=== PATIENT | male | born 1980 | race Caucasian/White ===

== ENCOUNTER 2025-06-17 13:32 | Outpatient (REF) | payer OTHER, SELFPAY ==
--- NOTE | ~2025-06-17 | FL_ITS ---
EXAMINATION: Modified BARIUM SWALLOW CLINICAL INFORMATION: Dysphagia COMPARISON: None available. TECHNIQUE: Routine modified barium swallow was performed under lateral fluoroscopy in presence of speech therapist following oral administration of various consistencies of food coated with barium. FINDINGS: Following oral administration of thick barium, barium with applesauce and cookie with barium paste there is normal oral mastication of solid food with propagation of solid and liquid bolus from the oral cavity through the pharynx into esophagus. No laryngeal penetration and aspiration seen. FLUOROSCOPY TIME: 57 seconds DOSE AREA PRODUCT: 924 uGy-m2 (microgray-meter squared) FL/FL Modified Barium Swallow IMPRESSION: Unremarkable barium swallow examination. Correlate with speech therapy report. Electronically signed by: Chao Brooks MD 06/18/2025 12:34 PM EDT
--- NOTE | 2025-06-17 15:33 | MHC.SL.IMP ---
Date of Plan of Treatment: 06/17/25 Onset of Symptoms/Illness: 06/17/24 Date Treatment Started: 06/17/25 Admitting Diagnosis: Dysphagia Primary Speech & Language Diagnosis: R13.13 Pharyngeal Phase Dysphagia Reason for Today's Visit: 92056 Modified Barium Swallow Study Pre-evaluation Dietary Consistencies: Regular Pre-evaluation Liquid Consistency: Thin Pre-evaluation Medication Administration: Whole with Liquid Medical History: Modified Barium Swallow Study Fluoroscopic Evaluation of Swallowing Function CPT Code 51019 Evaluation Year: 2024 Reason for Study: Patient reporting difficulty swallowing. Referring Physician: Fernando Frazier MD Evaluating Clinician: Marge Mccray MA, CCC-HOOK AND EYE ATTACHER Study Number: 1 Patient Name: Emile Fernandez Status: Outpatient Age: 45 Sex: Male Medical History Acne Allergic rhinitis Bilateral dry eyes Elevated liver function tests Excessive drinking alcohol Hypercholesterolemia Hyperlipidemia Hypertension Impaired fasting glucose Perennial allergic rhinitis Pes planus Current (pre-evaluation) Intake/Diet: Route: PO Diet Grade: Regular Liquid Consistencies: Thin Pre-Study Functional Oral Intake Scale (FOIS): 7- Total oral intake with no restrictions Pain: None reported at time of study SUBJECTIVE: Patient is a 45 year old male referred for a modified barium swallow study by his primary care provider. Patient reports onset of dysphagia approximately 1 year ago. He reports feeling food get stuck in his throat and needing to chew food more carefully for easier swallowing. He denies coughing, choking, odynophagia, heart burn, or having any trouble swallowing liquids. Food and Liquid Trials: Oral Impairment: Lip Closure: 1=Interlabial escape; no progression to anterior tip Oral Impairment: Tongue Control During Bolus Hold: 0=Cohesive bolus between tongue to palatal seal Oral Impairment: Bolus Preparation/Mastication: 0=Timely and efficient chewing and mashing Oral Impairment: Bolus Transport/Lingual Motion: 0=Brisk tongue motion Oral Impairment: Oral Residue: 1=Trace residue lining oral structures Oral Impairment:Initiation of Pharyngeal Swallow: 0=Bolus head at posterior angle of ramus (first hyoid excursion) Pharyngeal Impairment: Soft Palate Elevation: 0=No bolus between soft palate (SP)/pharyngeal wall (PW) Pharyngeal Impairment: Laryngeal Elevation: 0=Complete superior movement of thyroid cartilage (see description) Pharyngeal Impairment: Anterior Hyoid Excursion: 0=Complete anterior movement Pharyngeal Impairment: Epiglottic Movement: 0=Complete inversion Pharyngeal Impairment: Laryngeal Vestibular Closure:: 0=Complete: no air/contrast in laryngeal vestibule Pharyngeal Impairment: Pharyngeal Stripping Wave: 0=Present: complete Pharyngeal Impairment: Pharyngeal Contraction: Did not test Pharyngeal Impairment: Pharyngoesophageal Segment Openin=Complete distension and complete duration: no obstruction of flow Pharyngeal Impairment: Tongue Base (TB) Retraction: 0=No contrast between tongue base and posterior pharyngeal wall Pharyngeal Impairment: Pharyngeal Residue: 1=Trace residue within or on pharyngeal structures Pharyngeal Impairment: Esophageal Clearance Upright Position: 0=Complete clearance: esophageal coating Impressions and Recommendations OBJECTIVE: Time-out: performed at 14:30 Evaluation Start: 14:20; Stop: 14:30 Patient Positioning: Standing Viewing Planes: LAT & AP Contrast: MBSImP? Standardized Protocol using commercially prepared, standardized Barium viscosities, including: Varibar? THIN LIQUID (40% w/v, <15 cps) , Varibar? PUDDING (40% w/v, <3912-5141 cps) , 1/2 Shortbread Cookie (1 x1 x.25 ) [facility] [id number] [facility] Results: Lip closure for intraoral bolus containment resulted in interlabial escape, without progression to the anterior lip. Tongue control during bolus hold maintained a cohesive bolus held between tongue to palate seal. Bolus preparation and mastication resulted in timely and efficient chewing and mashing. Bolus transport/lingual motion was with brisk tongue motion. Oral residue was a trace, lining oral structures. Initiation of the pharyngeal swallow occurred as the bolus head reached the posterior angle of the mandibular ramus. Soft palate elevation resulted in no bolus between the soft palate and the pharyngeal wall. Laryngeal elevation demonstrated complete superior movement of the thyroid cartilage with complete approximation of the arytenoids to the epiglottic petiole. Anterior hyoid excursion demonstrated complete anterior movement. Epiglottic movement resulted in complete inversion. Laryngeal vestibular closure was complete, as indicated by no air or contrast within the laryngeal vestibule at the height of the swallow. Pharyngeal stripping wave was present and complete. Pharyngeal contraction could not be determined due to logistical reasons not related to physiologic impairment. Pharyngoesophageal segment opening was completely distended for complete duration with no obstruction of bolus flow. Tongue base retraction allowed no contrast between the retracted tongue base and the posterior pharyngeal wall. Pharyngeal residue was a trace within or on pharyngeal structures. Esophageal clearance in the upright position was complete, with only a coating of contrast, if any. Oral Impairment Score: 0 Pharyngeal Impairment Score: 0 (absence of score, component 13) Esophageal Impairment Score: 0 Laryngeal Penetration and Aspiration: Neither penetration nor aspiration was observed in today's study with Cookie, Pudding-thick, Thin. ASSESSMENT: This exam was performed by the radiologist and the speech pathologist. Patient was standing for lateral and AP views. He fed himself independently and trialed the following consistencies: thin liquids (rapid sequential cup sips), puree (mixture applesauce w/ barium pudding), and regular solid (shortbread cookie coated w/ barium pudding). Patient demonstrated good lingual control, maintaining bolus in the oral cavity with no premature posterior escape, and producing brisk lingual movement for timely bolus transit. Mastication was timely and efficient. Pharyngeal swallow trigger was timely. No evidence of nasopharyngeal reflux. Complete laryngeal elevation with good airway protection, complete epiglottic inversion and complete laryngeal vestibular closure. No evidence of aspiration or penetration. There was trace residue on the blade of tongue, in the valleculae and the pyriforms which subsequently cleared. Liquid Intake Recommendation: Thin Liquid Intake Strategies: Unrestricted Dietary Recommendations: Regular Medication Administration: Whole with Liquid Please contact the pharmacy regarding appropriate crushable or liquid drug formulations that are available whenever modified delivery is recommended. Compensatory Strategies Recommended: Sitting Upright (90 deg), Small Bites and Sips, Alternate Liquids/Solids, Rate of Ingestion Change Recommendation for Speech Therapy: NA:Typical Evaluation Text Comment: Intake Recommendations: Route: PO Diet Grade: Regular Liquid Consistencies: Thin Post-Study Functional Oral Intake Scale (FOIS): 7- Total oral intake with no restrictions Unremarkable MBSS. No evidence of aspiration. Good oral and pharyngeal clearance. Therapy Recommendations: Diet modification and speech intervention are not warranted at this time, as patient?s swallow in the oral and pharyngeal phases is deemed to be within functional limits. Patient may benefit from GI consult if his symptoms persist. Clinician - Supplemental, Miscellaneous Communication: It is important to note MBSS objective studies are snapshots in time and Patient function might vary with factors such as time of day or concomitant medical conditions. For this reason, the final treatment plan for this patient should rest with their medical care team. Additional recommendations should be considered with the totality of the Patient in mind. Thank for the opportunity to participate in the care of this patient. If you have any questions about the content of this report, please contact the [facility] at [facility]. Education: Education regarding findings from today's study and plans for therapy were provided to Patient only through Verbal Instruction. Understanding was expressed by the Patient only. Vice President Of Consulting Services Clinician/Clinical Fellow: No Supervisory Statement: N/A Speech Language Pathologist: Marge Mccray M.A., CCC-HOOK AND EYE ATTACHER
--- OUTSIDE RECORDS SUMMARY | 2025-06-17 16:04 | XMS_ITS | Encounter Summary ---
Author Organization [facility] Address [id number] [place] [id number] Care Team Providers Care Conference Organizer Name Role Phone Fernando Frazier MD Primary Care Provider [phone] Encounter Details Date Type Department Care Team (Latest Contact Info) Description 03/31/[address] [facility] - Main Lab [address] [facility] [place] [address] Edwin Arrington MD [address] [facility] [address] [place] [phone] Encounter for sterilization Social History Tobacco Use Types Packs/Day Years Used Date Smoking Tobacco: Never Assessed Sex and Gender Information Value Date Recorded Sex Assigned at Not on file Legal Sex Male 3:17 PM EDT Gender Identity Not on file Sexual Orientation Not on file documented as of this encounter Plan of Treatment Not on file documented as of this encounter Procedures Procedure Name Priority Date/Time Associated Diagnosis Comments AP OUTSIDE CONSULT Routine 03/28/2025 Encounter for sterilization documented in this encounter Results * Anatomic pathology outside consult (03/28/2025) Final Diagnosis Vas Deferens, Right, vasectomy: -SEGMENT OF NORMAL VAS DEFERENS WITH EPITHELIUM/ LUMEN IDENTIFIED. Vas Deferens, Left, vasectomy: -SEGMENT OF NORMAL VAS DEFERENS WITH EPITHELIUM/ LUMEN IDENTIFIED. 04/01/2025 2:40 PM EDT [facility] Clinical Information Z30.2 Encounter for sterilization [id number] 04/01/2025 2:40 PM EDT [facility] Gross Description A. Vas Deferens, Right, : Labeled Right vas deferens . Received in formalin is a 0.2 x 0.3 cm rubbery, valerio, tubular portion of tissue, with a central pinpoint lumen, which is submitted in toto in one cassette, between sponges, one piece, embed on end. (The luminal aspect is inked red to assist with embedding orientation.) B. Vas Deferens, Left, : Labeled Left vas deferens . Received in formalin is a 0.2 x 0.3 cm rubbery, valerio, tubular portion of tissue, with a central pinpoint lumen, which is submitted in toto in one cassette, between sponges, one piece, embed on end. (The luminal aspect is inked red to assist with embedding orientation.) /al 04/01/2025 2:40 PM EDT [facility] Disclaimer Unless otherwise specified, all tissue is 10% NB formalin fixed and paraffin embedded. Technical pathology services provided by [facility] [address] [facility] [address] [place] [address] (CLIA #[id number]/Amanda Horner MD, Author) 04/01/2025 2:40 PM EDT [facility] Tissue Structure of left vas deferens / Unknown 03/28/2025 03/31/2025 3:27 PM EDT Tissue specimen (specimen) Structure of left vas deferens / Unknown 03/28/2025 03/31/2025 3:28 PM EDT us Edwin Arrington MD LAB PATHOLOGY ORDERABLES Fin al Result [facility] [address] [place] [address], documented in this encounter Visit Diagnoses Diagnosis Encounter for sterilization Sterilization documented in this encounter Care Teams Conference Organizer Relationship Specialty Start Date End Date Fernando Frazier MD [address] [place] [id number] PCP - General Internal Medicine 03/31/25 documented as of this encounter
--- OUTSIDE RECORDS SUMMARY | 2025-06-17 16:04 | XMS_ITS | Clinical Summary ---
Author Organization [facility] Address [address] [place] [phone] Phone Care Team Providers Care Printer Slotter Helper Name Role Phone Fernando Frazier MD Primary Care Provider + Active Problems Problem Noted Date Diagnosed Date Genetic carrier status 01/26/2024 Overview (01/26/2024): [place] 2023, 175 condition panel. 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 Results reported; partner's (Falguni Fernandez ) carrier screening is pending Immunizations Immunization Administration Dates Next Due COVID-19 (Pre-07/31) Moderna Vaccine, Bivalent 6mo+ 08/15/2023 COVID-19 (Pre-07/31) Pfizer Vaccine, Bivalent 12+ 08/24/2022 COVID-19 (Pre-07/31) Pfizer Vaccine, mRNA, PF 07/10/2021,10/17/2020,09/26/2020 COVID-19, Unspecified Formulation 2022,07/10/2021,10/17/2020,2019 Hepatitis B Adult 12/08/1998,06/25/1998,05/19/19 98 MMR 03/16/1994,07/29/1983 Tdap 12/27/2018 Social History Tobacco Use Types Packs/Day Years Used Date Smoking Tobacco: Never Assessed Education Answer Date Recorded Are you interested in more education? Not on perez e 01/09/2024 Are you concerned about learning? Not on file 01/09/2024 No 01/09/2024 No 01/09/2024 Digital Access Answer Date Recorded No 01/09/2024 No 01/09/2024 Reliable internet access at home? Not on file 01/09/2024 Device with a working camera? Not on file Sex and Gender Information Value Date Recorded Sex Assigned at Male 01/10/2024 11:23 AM EDT Legal Sex Male 9:19 PM EDT Gender Identity Male 01/10/2024 11:23 AM EDT Sexual Orientation Straight 01/10/2024 11 :23 AM EDT Plan of Treatment Health Maintenance Due Date Last Done Comments LIPID PANEL 1982 DEPRESSION SCREENING 1994 SMOKING Hx and SMOKELESS TOBACCO SCREENING 1995 HEPATITIS C SCREENING 2000 HIV ONE-TIME SCREENING (18-65 YEARS) 2000 INFLUENZA VACCINE (#1) 2025 , 07/28/2021, 07/18/2018, Additional history exists COVID-19 VACCINE ( season) 2025 08/15/2023, 08/15/2023, 08/15/2023, Additional history exists Adult Td,Tdap Booster 12/27/2028 12/27/2018 HEPATITIS A VACCINES Aged Out No long er eligible based on patient's age to complete this topic HIB VACCINES Aged Out No longer eligi ble based on patient's age to complete this topic MENINGOCOCCAL VACCINES (ACWY) Aged Out No longer eligible based on patient's age to complete this topic MENINGOCOCCAL VACCINES (B) Aged Out N o longer eligible based on patient's age to complete this topic PNEUMOCOCCAL VACCINES (0-49 years) Aged Out No longer eligible based on patient's age to complete this topic Medical Devices Not on file Insurance S Member Subscriber Plan / Payer (Ef fective 2020-Present) Name:Emile Fernandez Relation to Subscriber:Self Name:Emile Fernandez Payer ID:Not on file Type:PPO Address: [address] [employer] Member Subscriber Plan / Payer (Ef fective 2020-Present) Name:Emile Fernandez Relation to Subscriber:Self Name:Emile Fernandez Payer ID:Not on file Type:PPO Address: [address] [employer] [facility] [employer] [facility] [employer] Member Subscriber Plan / Payer (Ef fective 2020-) Name:Emile Fernandez Relation to Subscriber:Self Name:Emile Fernandez Payer ID:Not on file Type:PPO Address: [address] [employer] [place] [address] [place] [address]S Member Subscriber Plan / Payer (Ef fective 2020-) Name:Emile Fernandez Relation to Subscriber:Self Name:Emile Fernandez Payer ID:Not on file Type:PPO Address: [address] [employer] Care Teams Printer Slotter Helper Relationship Specialty Start Date End Date Fernando Frazier MD PCP - General Internal Medicine 01/10/24 Additional Source Comments The information contained in this document represents components of the legal health record. It is not the complete legal health record.[facility]
--- OUTSIDE RECORDS SUMMARY | 2025-06-17 16:04 | XMS_ITS | Clinical Summary ---
Author Organization [address] [facility] Address [address] [place] [address] Phone Care Team Providers Care Mining Technician Name Role Phone Fernando Frazier MD Primary Care Provider [phone] Encounters Date Type Department Care Team Description 03/31/2025 Lab Requisition [facility] - Main Lab [address] [facility] [place] [address] Edwin Arrington MD Encounter for sterilization from Last 3 Months Social History Tobacco Use Types Packs/Day Years Used Date Smoking Tobacco: Never Assessed Sex and Gender Information Value Date Recorded Sex Assigned at Not on file Legal Sex Male 3:17 PM EDT Gender Identity Not on file Sexual Orientation Not on file Plan of Treatment Health Maintenance Due Date Last Done Comments DTaP,Tdap,and Td Vaccines (1 - Tdap) 2001 Hepatitis B Vaccines (1 of 3 - 19+ 3-dose series) 2001 Depression Screening 10/09/2024 Cholesterol Screening (Lipid Panel) 04/01/2025 HIV Screening 04/01/2025 Hepatitis C Screening 04/01/2025 Social Influencers of Health Screening 04/01/2025 COVID-19 Vaccine (1 - 2023-2 5 season) 2025 Influenza Vaccine (#1) 2025 HIB Vaccines Aged Out No longer eligi ble based on patient's age to complete this topic HPV Vaccines Aged Out No longer eligi ble based on patient's age to complete this topic Hepatitis A Vaccines Aged Out No long er eligible based on patient's age to complete this topic IPV Vaccines Aged Out No longer eligi ble based on patient's age to complete this topic MMR Vaccines Aged Out No longer eligi ble based on patient's age to complete this topic Meningococcal ACWY Vaccine Aged Out N o longer eligible based on patient's age to complete this topic Meningococcal B Vaccine Aged Out No l onger eligible based on patient's age to complete this topic Pneumococcal Vaccine: Pediat rics (0 to 5 Years) and At-Risk Patients (6 to 49 Years) Aged Out No longer eligible b ased on patient's age to complete this topic RSV Immunization Patients Un flory 20 months Aged Out No longer eligible b ased on patient's age to complete this topic Varicella Vaccines Aged Out No longer eligible based on patient's age to complete this topic Procedures Procedure Name Priority Date/Time Associated Diagnosis Comments AP OUTSIDE CONSULT Routine 03/28/2025 Encounter for sterilization from Last 3 Months Results * Anatomic pathology outside consult (03/28/2025) Final Diagnosis Vas Deferens, Right, vasectomy: -SEGMENT OF NORMAL VAS DEFERENS WITH EPITHELIUM/ LUMEN IDENTIFIED. Vas Deferens, Left, vasectomy: -SEGMENT OF NORMAL VAS DEFERENS WITH EPITHELIUM/ LUMEN IDENTIFIED. 04/01/2025 2:40 PM EDT [facility] Clinical Information Z30.2 Encounter for sterilization [id number] 04/01/2025 2:40 PM EDT [facility] Gross Description A. Vas Deferens, [...] embedding orientation.) /al 04/01/2025 2:40 PM EDT [facility] Disclaimer Unless otherwise specified, all tissue is 10% NB formalin fixed and paraffin embedded. Technical pathology services provided by [facility] at [address], [place] [address] (CLIA #[id number]/Amanda Horner MD, Retread Technician) 04/01/2025 2:40 PM EDT [facility] Tissue Structure of left vas deferens / Unknown 03/28/2025 03/31/2025 3:27 PM EDT Tissue specimen (specimen) Structure of left vas deferens / Unknown 03/28/2025 03/31/2025 3:28 PM EDT us Edwin Arrington MD LAB PATHOLOGY ORDERABLES Fin al Result [facility] [address] [place] [address], from Last 3 Months Insurance [facility] [address] [place] [address] Care Teams Mining Technician Relationship Specialty Start Date End Date Fernando Frazier MD [facility] [place] [phone] PCP - General Internal Medicine 03/31/25
== END 2025-06-17 13:33 | disposition home or self-care (01) ==
LOC: HO.XRAY 13:32
PROVIDERS: PCP Internal Medicine; Visit Provider Internal Medicine
DX: R13.10 Dysphagia, unspecified (principal)
CPT/HCPCS: 74230; 92611

== ENCOUNTER → 2025-06-17 13:34 | Outpatient (BNV) | payer OTHER, SELFPAY | PROVIDERS: PCP Internal Medicine; Visit Provider Radiology Diagnostic Radiology | DX: R13.10 Dysphagia, unspecified (principal) | CPT/HCPCS: 74230 ==